=== PATIENT | male | born 1965 | race Caucasian/White ===

== ENCOUNTER 2020-01-21 18:56 | Emergency (ER) | payer SELFPAY ==
[2020-01-21] MEDS ORDERED: Aspirin Chewable 81 MG TAB ONE (19:11)
[2020-01-21 19:28] LABS: #Basophils 0.1 thou/uL (0.0-0.2); #Lymphocytes 1.9 thou/uL (1.20-3.40); #Monocytes 0.7 thou/uL (0.11-0.59); #Neutrophils 14.4 thou/uL (1.40-6.50); %Basophils 0.6 % (0.0-1.0); %Eosinophils 0.2 % (0.0-10.0); %Lymphocytes 10.9 % (21.0-51.0); %Monocytes 3.8 % (0.0-10.0); %Neutrophils 84.6 % (42.0-75.0); Hemoglobin 16.3 g/dL (14.0-18.0); Mean Corpuscular HGB CONC 33.7 g/dL (32.0-36.0); Mean Corpuscular Hemoglobin 33.2 pg (27.0-31.0); Mean Corpuscular Volume 98.6 fL (78.0-98.0); Mean Platelet Volume 8.3 fL (7.4-10.4); Platelet Count 192 thou/uL (130-400); RBC Distribution Width 11.4 % (11.5-14.5); White Blood Cell (WBC) Count 17.1 thou/uL (4.8-10.8)
[2020-01-21 19:42] LABS: ALT (SGPT) 153 U/L (8-55); AST (SGOT) 97 U/L (5-34); Albumin 4.1 g/dL (3.5-5.0); Alkaline Phosphatase 64 U/L (40-110); Anion Gap 14 mmol/L (10-20); BUN (Urea Nitrogen) 7 mg/dL (8.4-25.7); Bilirubin, Total 1.2 mg/dL (0.2-1.2); Calc. Creatinine Clearance 0 mL/min (70-130); Calcium 9.2 mg/dL (7.8-10.44); Carbon Dioxide 24 mmol/L (22-29); Chloride 100 mmol/L (98-107); Estimated GFR-MDRD Greater than 90; Globulin 2.9 g/dL (2.4-3.5); Glucose 144 mg/dL (70-105); Lipase 18 U/L (8-78); Potassium 3.6 mmol/L (3.5-5.1); Sodium 134 mmol/L (136-145)
[2020-01-21] MEDS ORDERED: Famotidine 20 MG TAB ONE (19:50)
--- NOTE | 2020-01-21 19:51 | RAD ---
PORTABLE CHEST: 01/21/20 An AP portable film at 1919 shows a normal sized heart and clear lungs. No infiltrate or effusion was seen. There is no vascular congestion or edema. The mediastinum appears normal. IMPRESSION: No acute finding. POS: HOME
[2020-01-21] MEDS ORDERED: Lidocaine Viscous Sol 2% 15 ml UD Cup ONE (19:54)
[2020-01-21] MEDS ORDERED: Mag-Al Plus 1200 MG/1200 MG/120 MG/30 ML UDCUP ONE (19:54)
== END 2020-01-21 20:37 | disposition home or self-care (01) ==
LOC: BURERS 18:56
DX: R10.13 Epigastric pain (principal); F17.220 Nicotine dependence, chewing tobacco, uncomplicated
CPT/HCPCS: 71045; 80053; 83690; 83880; 84484; 85025; 85379; 93005; 94760